=== PATIENT | female | born 1990 | race Caucasian/White ===

== ENCOUNTER 2021-08-05 08:42 | Outpatient (CLI) | payer OTHER ==
[2021-08-05] MEDS ORDERED: Iopamidol 300 61% 100 ML VIAL FS ONE (14:52)
== END 2021-08-05 08:43 | disposition home or self-care (01) ==
LOC: CSHCT 08:42
PROVIDERS: ATTEND Student in an Organized Health Care Education/Training Program
DX: R51.9 Headache, unspecified (principal)
CPT/HCPCS: 70470; Q9967

== ENCOUNTER 2021-09-08 12:30 | Outpatient (CLI) | payer OTHER | END 2021-09-08 12:31 | disposition home or self-care (01) | LOC: CSHMRI 12:30 | PROVIDERS: ATTEND Ophthalmology | DX: H46.9 Unspecified optic neuritis (principal) | CPT/HCPCS: 70553 ==